=== PATIENT | male | born 1970 | race Caucasian/White ===

== ENCOUNTER → 2016-04-27 | Outpatient (CLI) | payer OTHER ==
--- NOTE | 2016-04-27 12:35 | REP ---
Clinical: Trauma. Technique: AP, lateral, bilateral oblique views left wrist . Findings: The carpal bones, surrounding osseous structures, soft tissues, and joint spaces are normal. There is no evidence for acute fracture or dislocation. No subcutaneous emphysema or radiodense foreign body. Impression: No acute fracture or dislocation Signed by Walt Veloz MD 04/27/2016 12:26 P
== END ==
LOC: M LRY 11:58
PROVIDERS: ATTEND Nurse Practitioner Family
DX: S69.92XA Unspecified injury of left wrist, hand and finger(s), initial encounter (principal); W18.30XA Fall on same level, unspecified, initial encounter; Y92.009 Unspecified place in unspecified non-institutional (private) residence as the place of occurrence of the external cause

== ENCOUNTER → 2016-09-23 | Outpatient (CLI) | payer OTHER | LOC: M SLEEP 19:52 | PROVIDERS: ATTEND Internal Medicine Pulmonary Disease | DX: G47.30 Sleep apnea, unspecified (principal) ==

== ENCOUNTER → 2016-11-05 | Outpatient (REF) | payer OTHER | LOC: M SMT 13:48 | PROVIDERS: ATTEND Urology | DX: Z30.2 Encounter for sterilization (principal) ==

== ENCOUNTER → 2016-12-22 | Outpatient (REF) | payer OTHER ==
[2016-12-22 14:37] LABS: IMMMOTILE SPERM CENTRIFUGED ABSENT (ABSENT); IMMOTILE SPERM ABSENT (ABSENT); MOTILE SPERM ABSENT (ABSENT); MOTILE SPERM CENTRIFUGED ABSENT (ABSENT)
== END ==
LOC: M SMT 13:24
PROVIDERS: ATTEND Urology
DX: Z30.2 Encounter for sterilization (principal)